=== PATIENT | male | born 1950 | race African-American/Black ===

== ENCOUNTER 2017-03-16 07:50 | Emergency (ER) | payer OTHER ==
[~2017-03-16] VITALS: Ht 180.3 cm; Wt 106.3 kg
[2017-03-16 07:55] VITALS: BP 162/92
== END 2017-03-16 09:47 | disposition home or self-care (01) ==
LOC: ED 09:33
DX: H10.31 Unspecified acute conjunctivitis, right eye (principal); E11.9 Type 2 diabetes mellitus without complications; I10 Essential (primary) hypertension
CPT/HCPCS: 99283